=== PATIENT | female | born 1950 | race American Indian/Alaskan Native ===

== ENCOUNTER 2018-12-08 14:07 | Emergency (ER) | payer MEDICARE ==
--- NOTE | 2018-12-08 14:33 | Emergency Department Report ---
Chief Complaint: Upper Respiratory Infection Stated Complaint: CHEST PAIN WHEN BREATHING Time Seen by Provider: 12/08/18 14:28 - HPI History of Present Illness: This is a 68 y.o. female that presents with right ear pain and chest discomfort with cough x 5 days. Patient states she was getting over a cold last week but symptoms persist over the past 5 days. PMH: DM & HTN - Exam Vital Signs: Vital Signs 12/08/18 14:29 Temperature 98.1 F Pulse Rate 82 Respiratory 20 Rate Blood Pressure 189/72 O2 Sat by Pulse 98 Oximetry MSE screening note: Focused history and physical exam performed. Due to findings the following was ordered: CXR ACC for further evaluation. ED Disposition for MSE Condition: Stable
--- NOTE | 2018-12-08 16:38 | XRay Report ---
PROCEDURE: XR CHEST ROUTINE 2V TECHNIQUE: PA and lateral views of the chest HISTORY: chest discomfort with cough COMPARISONS: None FINDINGS: Visualization of detail is somewhat limited by artifact created by large body habitus. There is prominence of the interstitial markings in both lungs with peribronchial thickening, acute v ersus chronic. There appear to be patchy areas of somewhat nodular pulmonary consolidation in the left mid and lower lung powell. There is no evidence of pneumothorax or pleural fluid collection. The cardiac silhouette is enlarged. There is atherosclerotic vascular calcification of the thoracic aorta. There is evidence of degenerative change of the right glenohumeral joint. Visualization of detail of the thoracic spine is limited. IMPRESSION: 1. Prominence of the interstitial markings with peribronchial thickening and the appearance of somewh at nodular areas of pulmonary consolidation in the left mid and lower lung powell. CT chest would be helpful for further evaluation. 2. Enlarged cardiac silhouette. This document is electronically signed by Marisela Ramires MD., December 08 2018 04:36:02 PM ET
--- NOTE | 2018-12-08 16:51 | Emergency Department Report ---
- General Chief Complaint: Upper Respiratory Infection Stated Complaint: CHEST PAIN WHEN BREATHING Time Seen by Provider: 12/08/18 14:28 Source: patient Mode of arrival: Wheelchair Limitations: No Limitations - History of Present Illness Initial Comments: 68-year-old -[place] female presents to the emergency room complaint of cough congestion sore throat right ear pain with drainage. Onset was Tuesday. Patient reports right ear has had drainage nasal congestion chest congestion with green mucus. Patient denies any fever or chills no nausea no vomiting. He has a past medical history of hypertension and diabetes. MD Complaint: cough, rhinorrhea, nasal congestion, sinus pain -: week(s) (1) Quality: aching Consistency: constant Improves With: nothing Worsens With: deep breaths Associated Symptoms: rhinorrhea, nasal congestion, sore throat, cough, shortness of breath. denies: fever, chills, nausea, vomiting, diarrhea Treatments Prior to Arrival: "cold medicine" - Related Data Previous Rx's Medication Instructions Recorded Last Taken Type Sulfamethoxazole/Trimethoprim 1 each PO BID #14 tablet 07/19/18 Unknown Rx [Bactrim DS TAB] Azithromycin [Zithromax Z-TAIHR] 250 mg PO DAILY #6 tab 12/08/18 Unknown Rx Benzonatate [Tessalon Perle] 100 mg PO TID PRN #21 capsule 12/08/18 Unknown Rx Cetirizine HCl [ZyrTEC] 10 mg PO QDAY #30 capsule 12/08/18 Unknown Rx Cipro/Dexameth 0.3/0.1% [Ciprodex 4 drops OT BID #1 bottle 12/08/18 Unknown Rx OTIC] Fluticasone Furoate [Flonase 1 spray NS QDAY #1 bottle 12/08/18 Unknown Rx Sensimist] Allergies Allergy/AdvReac Type Severity Reaction Status Date / Time No Known Allergies Allergy Verified 12/08/18 14:10 ED Review of Systems ROS: Stated complaint: CHEST PAIN WHEN BREATHING Other details as noted in HPI ENT: ear pain, throat pain, congestion, other (nasal congestion and rhinorrhea) Respiratory: cough ED Past Medical Hx - Past Medical History Hx Hypertension: Yes Hx CVA: Yes (TIA) Hx Diabetes: Yes Additional medical history: Breast CA - Surgical History Additional Surgical History: Double mastectomy - Social History Smoking Status: Never Smoker Substance Use Type: None - Medications Home Medications: Home Medications Medication Instructions Recorded Confirmed Last Taken Type Sulfamethoxazole/Trimethoprim 1 each PO BID #14 tablet 07/19/18 Unknown Rx [Bactrim DS TAB] Azithromycin [Zithromax Z-TAHIR] 250 mg PO DAILY #6 tab 12/08/18 Unknown Rx Benzonatate [Tessalon Perle] 100 mg PO TID PRN #21 capsule 12/08/18 Unknown Rx Cetirizine HCl [ZyrTEC] 10 mg PO QDAY #30 capsule 12/08/18 Unknown Rx Cipro/Dexameth 0.3/0.1% [Ciprodex 4 drops OT BID #1 bottle 12/08/18 Unknown Rx OTIC] Fluticasone Furoate [Flonase 1 spray NS QDAY #1 bottle 12/08/18 Unknown Rx Sensimist] ED Physical Exam - General Limitations: No Limitations General appearance: alert, in no apparent distress - Head Head exam: Present: atraumatic, normocephalic - Expanded ENT Exam Expanded TM/Canal exam: Canal Discharge: Right TM, Canal Tenderness: Right TM Throat exam: Negative: tonsillomegaly - Neck Neck exam: Present: normal inspection, full ROM. Absent: lymphadenopathy - Respiratory Respiratory exam: Present: normal lung sounds bilaterally. Absent: respiratory distress - Cardiovascular Cardiovascular Exam: Present: regular rate, normal rhythm. Absent: systolic murmur, diastolic murmur, rubs, gallop - GI/Abdominal GI/Abdominal exam: Present: soft, normal bowel sounds - Neurological Exam Neurological exam: Present: alert, oriented X3 - Psychiatric Psychiatric exam: Present: normal affect, normal mood - Skin Skin exam: Present: warm, dry, intact, normal color. Absent: rash ED Course Vital Signs 12/08/18 14:29 Temperature 98.1 F Pulse Rate 82 Respiratory 20 Rate Blood Pressure 189/72 O2 Sat by Pulse 98 Oximetry Critical care attestation.: If time is entered above; I have spent that time in minutes in the direct care of this critically ill patient, excluding procedure time. ED Disposition Clinical Impression: Right otitis externa Qualifiers: Otitis externa type: unspecified type Chronicity: acute Qualified Code(s): H60.501 - Unspecified acute noninfective otitis externa, right ear Pneumonia Qualifiers: Pneumonia type: due to unspecified organism Laterality: left Lung location: lower lobe of lung Qualified Code(s): J18.1 - Lobar pneumonia, unspecified organism Disposition: DC-01 TO HOME OR SELFCARE Is pt being admited?: No Does the pt Need Aspirin: No Condition: Stable Instructions: Bacterial Pneumonia (ED), Otitis Externa (ED) Additional Instructions: Please complete medications as prescribed. Follow-up with her primary care provider if his symptoms persist or gets worse. Prescriptions: Cipro/Dexameth 0.3/0.1% [Ciprodex OTIC] 4 drops OT BID #1 bottle Fluticasone Furoate [Flonase Sensimist] 1 spray NS QDAY #1 bottle Benzonatate [Tessalon Perle] 100 mg PO TID PRN #21 capsule PRN Reason: Cough Azithromycin [Zithromax Z-TAHIR] 250 mg PO DAILY #6 tab Cetirizine HCl [ZyrTEC] 10 mg PO QDAY #30 capsule Referrals: JYOTSNA SABILLON MD [Primary Care Provider] - 3-5 Days
--- NOTE | 2018-12-08 18:17 | Cat Scan Report ---
PROCEDURE: CT CHEST WO CON TECHNIQUE: Computerized axial tomography of the abdomen and pelvis was performed without contrast. C oronal and sagittal reconstruction was also performed. CT DOSE LENGTH PRODUCT: 1263.9 mGycm HISTORY: off with abnormal chest x-ray recommendations by dileep FISCHER: CXR 12/08/2018 FINDINGS: Patchy alveolar infiltrate in the left lower lobe posteriorly is seen consistent with atelectasis bhavin shirlene infection. Calcified granuloma in the medial left lower lobe is also noted. Patchy atelectasis in the lingula is noted. No interstitial prominence throughout is seen. No peribronchial thickening is present on CT. There is no evidence for vascular congestion, pleural effusion, or pneumothorax. There is no evidence for mediastinal, hilar, or axillary adenopathy. The esophagus is collapsed. The trachea is midline. Calcification of the aorta is noted. Cardiac size is upper limits normal. The aorta is normal in jacqueline jai. Images through the lung bases include upper abdomen which show no abnormality of the visualized abdom inal viscera. 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 No evidence for bon y fracture is seen. Degenerative disc changes throughout the thoracic spine are seen with anterior os teophytic bridging present. Bilateral breast implants are noted, much larger on the right than the left. On the right, there is a n involuting implant capsule. The left sided implant could also represent a residual fibrotic capsule from implant removal. IMPRESSION 1. Alveolar infiltrate in the left lower lobe consistent with atelectasis versus infection 2. Patchy atelectasis in the lingula 3. Asymmetry in the size of the breast implants This document is electronically signed by Teodora Jerez MD., December 08 2018 06:15:03 PM ET
[2018-12-08] MEDS ORDERED: TESSALON PERLES PO ONE (18:31)
[2018-12-08 20:07] VITALS: BP 205/101
== END 2018-12-08 19:45 | disposition home or self-care (01) ==
LOC: ED 14:07
DX: H60.501 Unspecified acute noninfective otitis externa, right ear (principal); J18.1 Lobar pneumonia, unspecified organism; I10 Essential (primary) hypertension; E11.9 Type 2 diabetes mellitus without complications; Z86.73 Personal history of transient ischemic attack (TIA), and cerebral infarction without residual deficits; Z85.3 Personal history of malignant neoplasm of breast
CPT/HCPCS: 71046; 71250